=== PATIENT | female | born 1960 | race Caucasian/White ===

== ENCOUNTER → 2023-06-19 15:20 | Outpatient (BNVA) | payer OTHER, SELFPAY | PROVIDERS: PCP Physician Assistant; Visit Provider Surgery ==

== ENCOUNTER 2023-08-19 07:56 | Outpatient (AMB) | payer OTHER, SELFPAY ==
--- NOTE | 2023-08-19 10:16 | MHC.OFFVISWM ---
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 BMI 39.3 *SEE COMMENTS*: Details: Start time: 10.10am, End time: 10.56am ?I spent 41 minutes speaking with the patient on the phone plus an additional 5 minutes reviewing and updating records for a total of 46 minutes HPI Comments Details: Previous weight loss efforts: (Pre-bypass weight: 293lbs, Lowest after bypass: 232lbs) Wakes up: 4am, Sleeps: 9pm Breakfast: 4.30am (bagel or toast) Lunch: 11am (pizza) Dinner: 5pm (chicken, burger) Snacks: 8am (cake), 7pm (crackers) Exercise: none Fluids: Coffee: (3-4 cups/day with creamer), tea: none, soda: none, juice: none, ETOH: none PFSH Medical History (Updated 08/19/23 @ 10:37 by Shankar Blair MD) DJD (degenerative joint disease) Depression Hypertension Surgical History (Updated 08/19/23 @ 10:28 by Shankar Blair MD) History of tonsillectomy History of laparoscopic cholecystectomy History of gastric bypass Telehealth Telehealth Telehealth Platform: Telephone Location of provider rendering services: practice address Location of patient: address on file Patient Identification confirmed using: Name, : Yes Telehealth method: voice only Patient verbally consented to treatment: Yes Patient verbally consented to billing insurance company: Yes Patient informed of any privacy concerns related to visit: Yes Minutes spent on Phone/Video with Pt.: 46 Assessment & Plan Assessment & Plan (1) Obesity: Code(s): E66.9 - Obesity, unspecified Category: Medical Qualifiers: Obesity type: due to excess calories Obesity classification: adult class 2 (BMI 35 - 39.9) Serious obesity comorbidity presence: with serious comorbidity Body mass index: BMI 39.0-39.9 Qualified Code(s): E66.01 - Morbid (severe) obesity due to excess calories; Z68.39 - Body mass index [BMI] 39.0-39.9, adult Plan: 1.? Plan for lap sleeve gastrectomy of the gastric pouch. If diaphragmatic or ventral hernias are present at time of surgery, these will be repaired laparoscopically as well. Risks and complications include possible conversion to an open procedure, anastomotic leak, bleeding requiring transfusion, small bowel obstruction, , DVT and pulmonary embolism, cardiac, or pulmonary complications, as residential complications such as anastomotic ulcer, insufficient weight loss and vitamin deficiencies. I emphasized the importance of close follow-up, adherence to instructions and good communication. 2. Nutritional counseling. Start with 2 CELEBRATE REBUILD protein (buy at hospital[facility] gift shop) shakes (ONE scoop EACH in 8oz low fat unsweetened almond milk each) at 5am-7am and 8am-10am, 2 protein bars (CELEBRATE protein bars, buy at [facility] [employer] [facility]) at 11am-1pm, and 2pm-4pm, dinner at 5pm (6 forks of protein and 6 forks of salad/vegetables) AND one more protein bar after dinner at 7pm-9pm. So you do 2 protein shakes, 3 protein bars and one meal per day. Meal to include lean meat (beef, fish, pork, turkey, chicken), or trinidadian yogurt, or egg whites, or beans with a salad with olive oil and fruits (berries, pears, apples, kiwi). Avoid salt, breads, potatoes, rice, pasta, desserts. 3. Each shake would be drunk slowly, like coffee in a period of 2 hours. You may add your coffee into your shakes if flavors match. 4. Cut each bar in 4 pieces and eat each piece in 30min ?to make each bar last 2 hours. 5. I emphasized the importance of measuring accurately the food portion and measure it when serving the food in plate 6. The meal portions include 6 full-size forks of meat and 6 full-size forks of salad. You always eat the meat portion but you can replace up to 3 forks for salad/vegetables with rice, potatoes or pasta, or a fruit ?if you like. The less you do it the better weight loss will be. 7. One full-size fork is what it can be scooped on the fork without falling aside and not what can be bit with the fork. Use regular forks like those you find in a typical restaurant. 8.? Please send me weight measurements as soon as possible and then once a week. Always include your diet and exercise plan. Alternatively come weekly at the office for weight checks and send me the measurements. 9. Start walking outside daily, tracking calories with a goal of 300 calories per day, daily. Goal is to burn 2000 calories per week on exercise, which means either 300 calories daily, or 400 calories 5 days per week, or 500 calories 4 days per week, or 650 calories 3 days per week. 10. The best choice would be to purchase a stationary bike, elliptical or treadmill at home that can track calories. Let me know if you do so I can give you an exercise plan. 11.?Goal is to lose at least 1.5-2lbs per week 12. Goal to lose 10% of your weight before surgery, which is about 24lbs. Ultimate weight goal: 215lbs before surgery 13. Please follow the diet plan exactly without any change. If you don't like something about the plan or you feel hungry you need to communicate with me so I can help you revise the plan. You should not change the plan yourself. 14. To be scheduled for EGD due to history of gastric bypass. The possibility of biopsies was discussed. Patient needs to avoid use of NSAIDs and aspirin for 1 week prior to EGD. Risks of perforation and? bleeding was discussed with the patient. This will be an outpatient procedure with IV sedation. Orders: Orders Complete Blood Count Auto Diff Today E66.9 - Obesity, unspecified, F32.A - Depression, unspecified, I10 - Essential (primary) hypertension, M19.90 - Unspecified osteoarthritis, unspecified site, Z68.39 - Body mass index [BMI] 39.0-39.9, adult Lipid Panel Today E66.9 - Obesity, unspecified, F32.A - Depression, unspecified, I10 - Essential (primary) hypertension, M19.90 - Unspecified osteoarthritis, unspecified site, Z68.39 - Body mass index [BMI] 39.0-39.9, adult Comprehensive Met. Panel Today E66.9 - Obesity, unspecified, F32.A - Depression, unspecified, I10 - Essential (primary) hypertension, M19.90 - Unspecified osteoarthritis, unspecified site, Z68.39 - Body mass index [BMI] 39.0-39.9, adult Vitamin B12 and Folate Today E66.9 - Obesity, unspecified, F32.A - Depression, unspecified, I10 - Essential (primary) hypertension, M19.90 - Unspecified osteoarthritis, unspecified site, Z68.39 - Body mass index [BMI] 39.0-39.9, adult Zinc Today E66.9 - Obesity, unspecified, F32.A - Depression, unspecified, I10 - Essential (primary) hypertension, M19.90 - Unspecified osteoarthritis, unspecified site, Z68.39 - Body mass index [BMI] 39.0-39.9, adult Vitamin B1 Today E66.9 - Obesity, unspecified, F32.A - Depression, unspecified, I10 - Essential (primary) hypertension, M19.90 - Unspecified osteoarthritis, unspecified site, Z68.39 - Body mass index [BMI] 39.0-39.9, adult US abdomen comp w elastography Today E66.9 - Obesity, unspecified, F32.A - Depression, unspecified, I10 - Essential (primary) hypertension, M19.90 - Unspecified osteoarthritis, unspecified site, Z68.39 - Body mass index [BMI] 39.0-39.9, adult XR chest 2V Today E66.9 - Obesity, unspecified, F32.A - Depression, unspecified, I10 - Essential (primary) hypertension, M19.90 - Unspecified osteoarthritis, unspecified site, Z68.39 - Body mass index [BMI] 39.0-39.9, adult Insulin Today E66.9 - Obesity, unspecified, F32.A - Depression, unspecified, I10 - Essential (primary) hypertension, M19.90 - Unspecified osteoarthritis, unspecified site, Z68.39 - Body mass index [BMI] 39.0-39.9, adult Hemoglobin A1c Today E66.9 - Obesity, unspecified, F32.A - Depression, unspecified, I10 - Essential (primary) hypertension, M19.90 - Unspecified osteoarthritis, unspecified site, Z68.39 - Body mass index [BMI] 39.0-39.9, adult H Pylori Breath Test Today E66.9 - Obesity, unspecified, F32.A - Depression, unspecified, I10 - Essential (primary) hypertension, M19.90 - Unspecified osteoarthritis, unspecified site, Z68.39 - Body mass index [BMI] 39.0-39.9, adult IRON PROFILE Today E66.9 - Obesity, unspecified, F32.A - Depression, unspecified, I10 - Essential (primary) hypertension, M19.90 - Unspecified osteoarthritis, unspecified site, Z68.39 - Body mass index [BMI] 39.0-39.9, adult C Reactive Protein Today E66.9 - Obesity, unspecified, F32.A - Depression, unspecified, I10 - Essential (primary) hypertension, M19.90 - Unspecified osteoarthritis, unspecified site, Z68.39 - Body mass index [BMI] 39.0-39.9, adult Vitamin A Today E66.9 - Obesity, unspecified, F32.A - Depression, unspecified, I10 - Essential (primary) hypertension, M19.90 - Unspecified osteoarthritis, unspecified site, Z68.39 - Body mass index [BMI] 39.0-39.9, adult TSH reflex Free T4 Today E66.9 - Obesity, unspecified, F32.A - Depression, unspecified, I10 - Essential (primary) hypertension, M19.90 - Unspecified osteoarthritis, unspecified site, Z68.39 - Body mass index [BMI] 39.0-39.9, adult Ferritin Today E66.9 - Obesity, unspecified, F32.A - Depression, unspecified, I10 - Essential (primary) hypertension, M19.90 - Unspecified osteoarthritis, unspecified site, Z68.39 - Body mass index [BMI] 39.0-39.9, adult Vitamin D 25-OH Total Today E66.9 - Obesity, unspecified, F32.A - Depression, unspecified, I10 - Essential (primary) hypertension, M19.90 - Unspecified osteoarthritis, unspecified site, Z68.39 - Body mass index [BMI] 39.0-39.9, adult ECG 12 lead EKG Today E66.9 - Obesity, unspecified, F32.A - Depression, unspecified, I10 - Essential (primary) hypertension, M19.90 - Unspecified osteoarthritis, unspecified site, Z68.39 - Body mass index [BMI] 39.0-39.9, adult FL upper GI w air Today E66.9 - Obesity, unspecified, F32.A - Depression, unspecified, I10 - Essential (primary) hypertension, M19.90 - Unspecified osteoarthritis, unspecified site, Z68.39 - Body mass index [BMI] 39.0-39.9, adult Referrals Behavioral Health Referral E66.9 - Obesity, unspecified, F32.A - Depression, unspecified, I10 - Essential (primary) hypertension, M19.90 - Unspecified osteoarthritis, unspecified site, Z68.39 - Body mass index [BMI] 39.0-39.9, adult Nutrition/Dietitian Referral E66.9 - Obesity, unspecified, F32.A - Depression, unspecified, I10 - Essential (primary) hypertension, M19.90 - Unspecified osteoarthritis, unspecified site, Z68.39 - Body mass index [BMI] 39.0-39.9, adult
[2023-08-19 10:34] VITALS: BMI 39.2
--- OUTSIDE RECORDS SUMMARY | 2023-08-23 09:16 | XMS_ITS | Continuity of Care Document ---
Author Organization [facility] [place] Address [address] [facility] [address] [place] [address]- Care Team Providers Care Roller Repairer Name Role Phone Savana Miller Primary Care Physician [phone] Encounter 06/07/22 - 06/14/22 [facility] [address], [facility] [address] [place] [address]- Attending Physician: Savana Miller Admitting Physician: Savana Miller Referring Physician: Savana Miller Allergies, Adverse Reactions, Alerts No Known Allergies Immunizations Given and Recorded Vaccine Date Status Refusal Reason SARS-CoV-2 (COVID-19) mRNA-1273 vaccine 07/08/20 R ecorded SARS-CoV-2 (COVID-19) mRNA-1273 vaccine 06/10/20 R ecorded influenza virus vaccine, inactivated 11/28/18 Mansoor rded influenza virus vaccine, inactivated 05/14/16 Mansoor rded influenza virus vaccine, inactivated 11/08/14 Mansoor rded influenza virus vaccine, inactivated 12/08/07 Mansoor rded tetanus-diphtheria toxoids (Td) 06/05/18 Recorded tetanus-diphtheria toxoids (Td) 09/15/97 Recorded tetanus/diphtheria/pertussis, acel(Tdap) 12/08/07 Recorded hepatitis B adult vaccine 07/03/01 Recorded hepatitis B adult vaccine 01/27/01 Recorded hepatitis B adult vaccine 12/27/00 Recorded Medications Albuterol (Eqv-ProAir HFA) 90 mcg/inh inhalation aerosol 2 puffs, Inhalation, Every 6 hours, PRN Wheezing/Shortness of Breath, # 1 each, 0 Refills, Maintenance, 01/01/22 9:49:00 EDT, [facility] #[id number], Partial fill upon patient request if the prescription is for a schedule II opioid drug., 2 puffs... Start Date: 01/01/22 Status: Ordered cloNIDine 0.2 mg oral tablet 0.2 mg, 1, tablet, By Mouth, 2 times a day, # 180 tablet, Refills 2, Tot. Refills 2, Maintenance, 11/13/21 15:47:00 EDT, Route to Pharmacy Electronically, [facility] #[id number], Partial fill upon patient request if the prescription is for a sched... Start Date: 11/13/21 Status: Ordered Diazepam = 50 mg, 2 times a day, 0 Refills, Maintenance, 05/11/22 8:53:00 EST, Partial fill upon patient request if the prescription is for a schedule II opioid drug. Start Date: 05/11/22 Status: Ordered diclofenac sodium 50 mg oral delayed release tablet 1 tablet = 50 mg, By Mouth, 3 times a day, # 90 tablet, 2 Refills, Maintenance, 04/10/22 12:44:00 EST, EC Tablet, [facility] #[id number], Partial fill upon patient request if the prescription is for a schedule II opioid drug., 166.1, cm, 04/10/22... Start Date: 04/10/22 Status: Ordered lisinopril 10 mg oral tablet 10 mg, 1, tablet, By Mouth, Daily, # 90 tablet, Refills 2, Tot. Refills 2, Maintenance, 11/13/21 15:47:00 EDT, Route to Pharmacy Electronically, [facility] #[id number], Partial fill upon patient request if the prescription is for a schedule II opi... Start Date: 11/13/21 Status: Ordered sertraline 100 mg oral tablet 1.5 tablet = 150 mg, By Mouth, Daily, # 135 tablet, 2 Refills, Maintenance, 11/13/21 15:47:00 EDT, Tablet, [facility] #[id number], Partial fill upon patient request if the prescription is for a schedule II opioid drug., 166.1, cm, 11/13/21 15:09:0... Start Date: 11/13/21 Status: Ordered Vitamin B12 500 mcg/mL injectable solution 0 Refills, Maintenance, 11/13/21 15:16:00 EDT, Partial fill upon patient request if the prescription is for a schedule II opioid drug. Start Date: 11/13/21 Status: Ordered Problem List Condition Confirmation Course Effective Dates Status H ealth Status Informant Vitamin B 12 deficiency Confirmed Active Kidney cysts Confirmed Active Former smoker Confirmed Active S/P gastric bypass Confirmed Active Hyperlipidemia Confirmed Active HTN (hypertension) Confirmed Active Lung nodules Confirmed Active Chronic pain of both knees Confirmed Active Major depression, recurrent, full remission Confirmed Active Severe obesity Confirmed Active Results Radiology Reports * Exam Date Time Procedure Performing Provider Status 06/07/22 10:[address] Chest LDCT Lung Program Vokatharine, Neno idi A; Auth (Verified) Notes: (CT Chest LDCT Lung Program) Reason For Exam: LAST ELIGIBLE IF 1 or 2 SUPERVISING GHAZALA CORDERO MD*LDCT LUNG CANCER SCREENING PROGRAM, FORMER SMOKER , QUIT AT AGE 46, 45PACK YEARS;Other: RESULT: CT Chest LDCT Lung Program CT Chest LDCT Lung Program Reason: Other:; LAST ELIGIBLE IF 1 or 2 SUPERVISING GHAZALA CORDERO MD*LDCT LUNG CANCER SCREENING PROGRAM, FORMER SMOKER , QUIT AT AGE 46, 45PACK YEARS; Special Instructions: BOOK AT [address] [place] [address] BOOK AFTER 05 22 2022 CALL [phone] IN LAST 12 MONTHS NO LUNG CA OR SIGNS SYMPTOMS OF LUNG CA Visit type: Baseline TECHNIQUE: Low-dose helical CT of the chest without IV contrast (Adult Lung Cancer Screening) protocol was performed. Coronal reformats were obtained. Weight-based protocol using automatic tube modulation was used to optimize exposure parameters. CTDIvol Body: 3.22 mGy, DLP Body: 107 mGy*cm. COMPARISON: CT chest with contrast, from 10/02/2005 FINDINGS: LUNG NODULES: (Based on series 5 axial) RIGHT lung: * 5 mm perifissural nodule along the minor fissure, image 183 axial; sagittal image 24. * 4 mm subpleural nodule in the posterior aspect of the right lower lobe, image 253 (measured 3 mm in 2006) * 4 mm average subpleural nodule in the right lower lobe, image 191 marginally increased from priorstudy from 2005. LEFT lung: * Average 5 mm subpleural nodule noted in the left lower lobe, image 242, stable from 2005. * 4 mm perifissural nodule along the left major fissure, seen on axial image 82; sagittal image 64,stable from 2006. * Additional scattered 1 to 2 mm micronodules noted in the left lung. OTHER FINDINGS: Trachea and Airways: Patent without evidence of tracheal or endobronchial lesion. Lungs and Pleura: Mild linear atelectasis in the anterior aspect of the right upper lobe. Redemonstrated is a 1.8 x 1.5 x 2 cm nodular density in the suprahilar region of the right upper lobe, also seen on prior study from 2006, with associated linear opacity more proximally along the bronchovascular bundle. The density has not significantly changed compared to the prior study from 2006 however there are few air-filled cystic changes noted in the adjacent lung parenchyma. No pneumothorax or pleural effusion. Mediastinum and Lymph nodes: No enlarged lymph nodes. Esophagus is unremarkable. Aorta: Mild vascular calcification but no aneurysm. Heart: Normal cardiac size. No pericardial effusion. Mild mitral annular calcification noted. Chest wall and Soft tissues: Normal. Diaphragm and Upper Abdomen: Cholecystectomy clips partially visualized. Post gastric bypass surgery changes noted. Bones: No suspicious osseous abnormalities. Mild chronic degenerative changes of the thoracic spine. IMPRESSION: 1. Bilateral lung nodules measuring up to 5 mm, some of which were also seen on prior study from 2006. LungRad Category: 2 Benign Appearance or Behavior. Nodules with a very low likelihood of becoming a clinically active cancer due to size or lack of growth. Continue annual screening with LDCT in 12 months. 2. Persistent nodular density in the right upper lobe suprahilar region now with mild distal linearatelectasis and few adjacent air-filled cystic changes, not significantly changed in size from 2006probably representing a thrombosed vascular lesion (prior pulmonary angiogram from 2006 did not demonstrate a patent vascular lesion). Categorization based on Lung-RADS 2022 criteria. [email or web address] WSN: [id number] Ordering Physician: Savana Russo Dictated By: Daphney Elkins MD Dictated Date/Time: 06/07/22 11:58 a Reviewed By: Daphney Elkins MD Signed By: Daphney Elkins MD Signed Date/Time: 06/07/22 11:58 am Transcribed By: EDUARD Transcribed Date/Time: 06/07/22 11:34 am Social History Social History Type Response Tobacco Other: quit 15 years ago, one and a half packs. Started at age: 15 Years. Sex Note * BHSPowerscribe , CIS S: TRANSCRICHIVO Elkins MD, Daphney: VERIFY Event Display: Result: Authored Date: [id number] CT Chest LDCT Lung Program Reason: Other:; LAST ELIGIBLE IF 1 or 2 SUPERVISING GHAZALA CORDERO MD*LDCT LUNG CANCER SCREENING PROGRAM, FORMER SMOKER , QUIT AT AGE 46, 45PACK YEARS; Special Instructions: BOOK AT [address] [place] [address] BOOK AFTER 05 22 2022 CALL [phone] IN LAST 12 MONTHS NO LUNG CA OR SIGNS SYMPTOMS OF LUNG CA Visit type: Baseline TECHNIQUE: Low-dose helical CT of the chest without IV contrast (Adult Lung Cancer Screening) protocol was performed. Coronal reformats were obtained. Weight-based protocol using automatic tube modulation was used to optimize exposure parameters. CTDIvol Body: 3.22 mGy, DLP Body: 107 mGy*cm. COMPARISON: CT chest with contrast, from 10/02/2005 FINDINGS: LUNG NODULES: (Based on series 5 axial) RIGHT lung: * 5 mm perifissural nodule along the minor fissure, image 183 axial; sagittal image 24. * 4 mm subpleural nodule in the posterior aspect of the right lower lobe, image 253 (measured 3 mm in 2006) * 4 mm average subpleural nodule in the right lower lobe, image 191 marginally increased from priorstudy from 2005. LEFT lung: * Average 5 mm subpleural nodule noted in the left lower lobe, image 242, stable from 2005. * 4 mm perifissural nodule along the left major fissure, seen on axial image 82; sagittal image 64,stable from 2006. * Additional scattered 1 to 2 mm micronodules noted in the left lung. OTHER FINDINGS: Trachea and Airways: Patent without evidence of tracheal or endobronchial lesion. Lungs and Pleura: Mild linear atelectasis in the anterior aspect of the right upper lobe. Redemonstrated is a 1.8 x 1.5 x 2 cm nodular density in the suprahilar region of the right upper lobe, also seen on prior study from 2005, with associated linear opacity more proximally along the bronchovascular bundle. The density has not significantly changed compared to the prior study from 2006 however there are few air-filled cystic changes noted in the adjacent lung parenchyma. No pneumothorax or pleural effusion. Mediastinum and Lymph nodes: No enlarged lymph nodes. Esophagus is unremarkable. Aorta: Mild vascular calcification but no aneurysm. Heart: Normal cardiac size. No pericardial effusion. Mild mitral annular calcification noted. Chest wall and Soft tissues: Normal. Diaphragm and Upper Abdomen: Cholecystectomy clips partially visualized. Post gastric bypass surgery changes noted. Bones: No suspicious osseous abnormalities. Mild chronic degenerative changes of the thoracic spine. IMPRESSION: 1. Bilateral lung nodules measuring up to 5 mm, some of which were also seen on prior study from 2006. LungRad Category: 2 Benign Appearance or Behavior. Nodules with a very low likelihood of becoming a clinically active cancer due to size or lack of growth. Continue annual screening with LDCT in 12 months. 2. Persistent nodular density in the right upper lobe suprahilar region now with mild distal linearatelectasis and few adjacent air-filled cystic changes, not significantly changed in size from 2006probably representing a thrombosed vascular lesion (prior pulmonary angiogram from 2005 did not demonstrate a patent vascular lesion). Categorization based on Lung-RADS 2022 criteria. [email or web address] WSN: [id number] Ordering Physician: Savana Russo Dictated By: Daphney Elkins MD Dictated Date/Time: 06/07/22 11:58 a Reviewed By: Daphney Elkins MD Signed By: Daphney Elkins MD Signed Date/Time: 06/07/22 11:58 am Transcribed By: EDUARD Transcribed Date/Time: 06/07/22 11:34 am Patient Care team information Care Team Personnel Name: Faby Luo NP Position: Reference Physician Member Role: Primary Care Nurse Address: Address: [address] [place] [address] [address] [place] [address]- Name: Savana Miller Position: S Associate Professional Member Role: PCP Address: Address: [address] [place] [id number]- Care Team Related Persons Name: CHRISTIAN DALTON Address: home [address] [place] [address]
--- OUTSIDE RECORDS SUMMARY | 2023-08-23 09:16 | XMS_ITS | Continuity of Care Document ---
Author Organization [facility] Address [address] [place] [address] ve [address] [place] [address]- Care Team Providers Care L Tacker Name Role Phone Savana Miller Primary Care Physician [facility] Date(s): 03/16/22 - 04/15/[address] [place], [place] [address] Allergies, Adverse Reactions, Alerts No Known Allergies [...] each, 0 Refills, Maintenance, 01/01/22 9:49:00 EDT, [facility] #[id number], Partial fill upon patient request if the prescription is for a schedule II opioid drug., 2 puffs... Start Date: 01/01/22 Status: Ordered cloNIDine 0.2 mg oral tablet 0.2 mg, 1, tablet, By Mouth, 2 times a day, # 180 tablet, Refills 2, Tot. Refills 2, Maintenance, 11/13/21 15:47:00 EDT, Route to Pharmacy Electronically, [facility] #[id number], Partial fill upon patient request if the prescription is for a sched... Start Date: 11/13/21 Status: Ordered diclofenac sodium 50 mg oral delayed release tablet 1 tablet = 50 mg, By Mouth, 3 times a day, # 90 tablet, 2 Refills, Maintenance, 04/10/22 12:44:00 EST, EC Tablet, [facility] #[id number], Partial fill upon patient request if the prescription is for a schedule II opioid drug., 166.1, cm, 04/10/22... Start Date: 04/10/22 Status: Ordered lisinopril 10 mg oral tablet 10 mg, 1, tablet, By Mouth, Daily, # 90 tablet, Refills 2, Tot. Refills 2, Maintenance, 11/13/21 15:47:00 EDT, Route to Pharmacy Electronically, [facility] #[id number], Partial fill upon patient request if the prescription is for a schedule II opi... Start Date: 11/13/21 Status: Ordered sertraline 100 mg oral tablet 1.5 tablet = 150 mg, By Mouth, Daily, # 135 tablet, 2 Refills, Maintenance, 11/13/21 15:47:00 EDT, Tablet, [facility] #[id number], Partial fill upon patient request if the [...] (hypertension) Confirmed Active Lung nodules Confirmed Active Obese class II Confirmed Active Chronic pain of both knees Confirmed Active Major depression, recurrent, full remission Confirmed Active Social History Social History Type Response Tobacco Other: quit 15 years ago, one and a half packs. Started at age: 15 Years. Sex Patient Care team information Care Team Personnel Name: Faby Luo NP Position: Reference Physician Member Role: Primary Care Nurse Address: Address: [address] [place] [address] [address] [facility] [place] [address]- Name: Savana Miller Position: [facility] Associate Professional Member Role: PCP Address: Address: [address] [place] [address] [place] [address]- Care Team Related Persons Name: CHRISTIAN DALTON Address: home [address] [place] [address]
--- OUTSIDE RECORDS SUMMARY | 2023-08-23 09:16 | XMS_ITS | Continuity of Care Document ---
Author Organization [facility] Address [address] [place] [address] [address] [place] [address]- Care Team Providers Care Crm Developer Name Role Phone Savana Miller Primary Care Physician [facility] Date[facility]s): 05/11/22 - 05/18/[address] [place], [place] [address] Attending Physician: West Flanagan MD Referring Physician: Savana Miller Allergies, Adverse Reactions, [...] each, 0 Refills, Maintenance, 01/01/22 9:49:00 EDT, [facility] #[id number], Partial fill upon patient request if the prescription is for a schedule II opioid drug., 2 puffs... Start Date: 01/01/22 Status: Ordered cloNIDine 0.2 mg oral tablet 0.2 mg, 1, tablet, By Mouth, 2 times a day, # 180 tablet, Refills 2, Tot. Refills 2, Maintenance, 11/13/21 15:47:00 EDT, Route to Pharmacy Electronically, [facility] #[id number], Partial fill upon patient request if the [...] Refills, Maintenance, 04/10/22 12:44:00 EST, EC Tablet, [facility] #[id number], Partial fill upon patient request if the prescription is for a schedule II opioid drug., 166.1, cm, 04/10/22... Start Date: 04/10/22 Status: Ordered lisinopril 10 mg oral tablet 10 mg, 1, tablet, By Mouth, Daily, # 90 tablet, Refills 2, Tot. Refills 2, Maintenance, 11/13/21 15:47:00 EDT, Route to Pharmacy Electronically, [facility] #[id number], Partial fill upon patient request if the prescription is for a schedule II opi... Start Date: 11/13/21 Status: Ordered sertraline 100 mg oral tablet 1.5 tablet = 150 mg, By Mouth, Daily, # 135 tablet, 2 Refills, Maintenance, 11/13/21 15:47:00 EDT, Tablet, [facility] #[id number], Partial fill upon patient request if the [...] remission Confirmed Active Severe obesity Confirmed Active Vital Signs Most recent to oldest [Reference Range]: 1 Height 166.1 cm (05/11/22 8:49 AM) Weight 110.8 kg (05/11/22 8:49 AM) Pulse Rate [55-90 bpm] 61 bpm (05/11/22 8:49 AM) Body Mass Index [18.5-24.99 kg/m2] 40.16 kg/m2 *>HHI* (05/11/22 8:49 AM) Blood Pressure [90-138/55-84 mm Hg] 129/ 78mm Hg (05/11/22 8:49 AM) Respiratory Rate [16-30 br/min] 16 br/mi n (05/11/22 8:49 AM) Temperature [96.8-100.4 DegF] 97.1 DegF (05/11/22 8:49 AM) Blood pressure sites Arm, left (05/11/22 8:49 AM) Temperature Route Temporal (05/11/22 8:49 AM) Weight Obtained Via Standing scale (05/11/22 8:49 AM) Social History Social History Type Response Tobacco Other: quit 15 years ago, one and a half packs. Started at age: 15 Years. Sex Patient Care team information Care Team Personnel Name: Faby Luo NP Position: Reference Physician Member Role: Primary Care Nurse Address: Address: [address] [place] [address] [address] [facility] [place] [address]- [place] Name: Savana Miller Position: S Associate Professional Member Role: PCP Address: Address: [address] [place] [address] [place] [address]- Care Team Related Persons Name: CHRISTIAN DALTON Address: home [address] [place] [address]
--- OUTSIDE RECORDS SUMMARY | 2023-08-23 09:16 | XMS_ITS | Continuity of Care Document ---
Author Organization [facility] Address [address] [place] [address] [address] [place] [address]- Care Team Providers Care Auto Body Man Name Role Phone Savana Miller Primary Care Physician [phone] [facility] Date(s): 05/11/22 - 08/09/[address] [place], [place] [address] Attending Physician: West Flanagan MD Allergies, Adverse Reactions, Alerts No Known Allergies [...] each, 0 Refills, Maintenance, 01/01/22 9:49:00 EDT, [facility] #[id number], Partial fill upon patient request if the prescription is for a schedule II opioid drug., 2 puffs... Start Date: 01/01/22 Status: Ordered cloNIDine 0.2 mg oral tablet 0.2 mg, 1, tablet, By Mouth, 2 times a day, # 180 tablet, Refills 2, Tot. Refills 2, Maintenance, 11/13/21 15:47:00 EDT, Route to Pharmacy Electronically, [facility] #[id number], Partial fill upon patient request if the [...] 1 tablet = 50 mg, By Mouth, Daily, # 90 tablet, 2 Refills, Maintenance, 04/10/22 12:44:00 EST, EC Tablet, [facility] #[id number], Partial fill upon patient request if the prescription is for a schedule II opioid drug., 166.1, cm, 04/10/22 8:57:00... Start Date: 04/10/22 Status: Ordered lisinopril 10 mg oral tablet 10 mg, 1, tablet, By Mouth, Daily, # 90 tablet, Refills 2, Tot. Refills 2, Maintenance, 11/13/21 15:47:00 EDT, Route to Pharmacy Electronically, [facility] #[id number], Partial fill upon patient request if the prescription is for a schedule II opi... Start Date: 11/13/21 Status: Ordered Mounjaro 2.5 mg/0.5 mL subcutaneous solution = 2.5 mg, Subcutaneous Infusion, Every 7 days, # 2 mL, 2 Refills, Maintenance, 07/24/22 13:08:00 EDT, [facility] #[id number], Partial fill upon patient request if the prescription is for a schedule II opioid drug., 166.1, cm, 07/24/22 12:50:00 EDT... Start Date: 07/24/22 Status: Ordered sertraline 100 mg oral tablet 1.5 tablet = 150 mg, By Mouth, Daily, # 135 tablet, 0 Refills, Maintenance, 06/18/22 13:22:00 EDT, Tablet, [facility] #[id number], Partial fill upon patient request if the prescription is for a schedule II opioid drug., 166.1, cm, 06/14/22 13:03:0... Start Date: 06/18/22 Status: Ordered Vitamin B12 500 mcg/mL injectable [...] remission Confirmed Active Severe obesity Confirmed Active Social History Social History Type Response Tobacco Other: quit 15 years ago, one and a half packs. Started at age: 15 Years. Sex Patient Care team information Care Team Personnel Name: Faby Luo NP Position: Reference Physician Member Role: Primary Care Nurse Address: Address: [address] [place] [address] [address] [facility] [place] [address]- Name: Savana Miller Position: [facility] Associate Professional Member Role: PCP Address: Address: [address] [place] [address] [place] [address]- Care Team Related Persons Name: CHRISTIAN DALTON Address: home [address] [place] [address]
--- OUTSIDE RECORDS SUMMARY | 2023-08-23 09:16 | XMS_ITS | Continuity of Care Document ---
Author Organization [facility] Address [address] [place] [address]- Care Team Providers Care Kilnman Name Role Phone Savana Miller Primary Care Physician Encounter [facility] Date(s): 02/06/23 - 03/08/23 [facility] Care [address] [place] [address]- Attending Physician: AdmEfren gregorio Admitting Physician: AdmtrEfren Referring Physician: Admtr ArMohsen Allergies, Adverse Reactions, Alerts No Known Allergies [...] each, 0 Refills, Maintenance, 01/01/22 9:49:00 EDT, [facility] #[id number], Partial fill upon patient request if the prescription is for a schedule II opioid drug., 2 puffs... Start Date: 01/01/22 Status: Ordered cloNIDine 0.2 mg oral tablet 1, tablet, By Mouth, 2 times a day, # 180 tablet, Refills 1, Maintenance, 02/19/23 19:34:00 EST, Route to Pharmacy Electronically, [facility], 166.1, cm, 01/09/23 10:41:00 EDT, Height Start Date: 02/19/23 Status: Ordered cyanocobalamin 1000 mcg/ml injectable solution 1 mL = 1,000 mcg, Intramuscular, Every 30 days, # 30 mL, 0 Refills, Maintenance, 12/14/22 11:32:00 EDT, [facility], Partial fill upon patient request if the prescription is for a schedule II opioid drug. Start Date: 12/14/22 Status: Ordered Diazepam = 50 mg, 2 times a day, 0 Refills, Maintenance, 05/11/22 8:53:00 EST, Partial fill upon patient request if the prescription is for a schedule II opioid drug. Start Date: 05/11/22 Status: Ordered diclofenac sodium 50 mg oral delayed release tablet 1 tablet = 50 mg, By Mouth, 3 times a day, # 270 tablet, 2 Refills, Maintenance, 10/08/22 19:19:00 EDT, EC Tablet, [facility], Partial fill upon patient request if the prescriptionis for a schedule II opioid drug., 166.1, cm, 09/19... Start Date: 10/08/22 Stop Date: 07/05/23 Status: Ordered ferrous fumarate 324 mg oral tablet 1 tablet = 324 mg, By Mouth, Daily, # 90 tablet, 0 Refills, Maintenance, 12/14/22 11:04:00 EDT, Tablet, [facility][id number], Partial fill upon patient request if the prescription is for a schedule II opioid drug., 166.1, cm, 12/14/22 10:39:00 E... Start Date: 12/14/22 Status: Ordered lisinopril 10 mg oral tablet 1, tablet, By Mouth, Daily, # 90 tablet, Refills 1, Maintenance, 02/19/23 19:34:00 EST, Route to Pharmacy Electronically, [facility], 166.1, cm, 01/09/23 10:41:00 EDT, Height Start Date: 02/19/23 Status: Ordered omeprazole 20 mg oral enteric coated capsule 1 capsule = 20 mg, By Mouth, Daily, # 90 capsule, 0 Refills, Maintenance, 01/09/23 11:00:00 EDT, ECCapsule, [facility], Partial fill upon patient request if the prescription is for a schedule II opioid drug., 166.1, cm, 01/09/23 10... Start Date: 01/09/23 Status: Ordered sertraline 100 mg oral tablet 2 tablet = 200 mg, By Mouth, Daily, # 180 tablet, 3 Refills, Maintenance, 10/24/22 9:14:00 EDT, Tablet, [facility], Partial fill upon patient request if the prescription is for a schedule II opioid drug., 166.1, cm, 10/24/22 8:57:00... Start Date: 10/24/22 Stop Date: 10/19/23 Status: Ordered Trulicity Pen 0.75 mg/0.5 mL subcutaneous solution 0.5 mL = 0.75 mg, Subcutaneous Injection, Every week, rotate injection sites, # 2 mL, 3 Refills, Maintenance, 01/09/23 11:00:00 EDT, Solution, [facility], Partial fill upon patientrequest if the prescription is for a schedule II op... Start Date: 01/09/23 Status: Ordered Vitamin B12 500 mcg/mL injectable [...] Confirmed Active S/P gastric bypass Confirmed Active Hyperglycemia Confirmed Active Hyperlipidemia Confirmed Active HTN (hypertension) Confirmed Active NADIR (iron deficiency anemia) Confirmed Active Lung nodules Confirmed Active Chronic pain of both knees Confirmed Active Major depression, recurrent, full remission Confirmed Active Severe obesity (BMI 35.0-39.9) with comorbidity Confirmed Active Social History Social History Type Response Tobacco Other: quit 15 years ago, one and a half packs. Started at age: 15 Years. Sex Patient Care team information Care Team Personnel Name: Faby Luo NP Position: Reference Physician Member Role: Primary Care Nurse Address: Address: [address] [place] [address] [address] [facility] [place] [address]- Name: Savana Miller Position: [facility] Associate Professional Member Role: PCP Address: Address: [address] [place] [address]- Care Team Related Persons Name: CHRISTIAN DALTON Address: home [address] [place] [address]
--- OUTSIDE RECORDS SUMMARY | 2023-08-23 09:16 | XMS_ITS | Continuity of Care Document ---
Author Organization [facility] Address [address] [place] [address]- Care Team Providers Care Manager Basketball Name Role Phone Kiya Louis Primary Care Physician [facility] [facility] [place]): 04/26/[facility] - 08/[facility] Care [address] [place] [address] Discharge Disposition: A-D/C Home Attending Physician: Brianna Ramirez MD Admitting Physician: Brianna Ramirez MD Referring Physician: Savana Miller Allergies, Adverse [...] each, 0 Refills, Maintenance, 01/01/22 9:49:00 EDT, [email or web address] #[id number], Partial fill upon patient request if the prescription is for a schedule II opioid drug., 2 puffs... Start Date: 01/01/22 Status: Ordered cloNIDine 0.2 mg oral tablet 1, tablet, By Mouth, 2 times a day, # 180 tablet, Refills 1, Tot. Refills 1, Maintenance, 06/05/23 16:32:00 EDT, Route to Pharmacy Electronically, [facility], 166.1, cm, 05/27/23 14:40:00 EDT, Height, 110.4, kg, 05/27/23 14:40:00 ED... Start Date: 06/05/23 Status: Ordered cyanocobalamin 1000 mcg/ml injectable solution [...] mg, By Mouth, 3 times a day, for 90 days, with food, # 270 tablet, 0 Refills, Hard Stop 10/08/23 16:38:00 EDT, 07/10/23 16:38:00 EDT, EC Tablet, [email or web address] #[id number], Partial fillupon patient request if the prescription is for a s... Start Date: 07/10/23 Stop Date: 10/08/23 Status: Ordered diclofenac sodium 50 mg oral delayed release tablet 1 tablet = 50 mg, By Mouth, 3 times a day, PRN as needed for arthritis, with food, # 270 tablet, 0 Refills, Maintenance, 10/08/23 16:38:00 EDT, EC Tablet, [facility], Partial fill upon patient request if the prescription is for a sc... Start Date: 10/08/23 Stop Date: 01/06/24 Status: Ordered ferrous fumarate 324 mg oral tablet 1 tablet = 324 mg, By Mouth, Daily, # 90 tablet, 0 Refills, Maintenance, 04/30/23 14:01:00 EST, Tablet, [facility] #[id number], Partial fill upon patient request if the prescription is for a schedule II opioid drug., 166.1, cm, 04/29/23 9:11:00 ES... Start Date: 04/30/23 Status: Ordered lisinopril 10 mg oral tablet 1, tablet, By Mouth, Daily, # 90 tablet, Refills 1, Tot. Refills 1, Maintenance, 06/05/23 16:30:00 EDT, Route to Pharmacy Electronically, [facility], 166.1, cm, 05/27/23 14:40:00 EDT, Height, 110.4, kg, 05/27/23 14:40:00 EDT, Dry We... Start Date: 06/05/23 Status: Ordered omeprazole 20 mg oral enteric coated capsule 1 capsule = 20 mg, By Mouth, Daily, # 90 capsule, 0 Refills, Maintenance, 04/30/23 14:01:00 EST, ECCapsule, [facility] #[id number], Partial fill upon patient request if the prescription is for aschedule II opioid drug., 166.1, cm, 04/29/23 9:11:... Start Date: 04/30/23 Status: Ordered sertraline 100 mg oral tablet 2 tablet = 200 mg, By Mouth, Daily, # 180 tablet, 3 Refills, Maintenance, 04/30/23 14:01:00 EST, Tablet, [facility] #[id number], Partial fill upon patient request if the prescription is for a schedule II opioid drug., 166.1, cm, 04/29/23 9:11:00 E... Start Date: 04/30/23 Stop Date: 04/24/24 Status: Ordered Vitamin B12 500 mcg/mL injectable [...] obesity (BMI 35.0-39.9) with comorbidity Confirmed Active Vital Signs Most recent to oldest [Reference Range]: 1 2 Height 166.1 cm (06/17/23 10:42 AM) 166.1 cm (04/29/23 9:11 AM) Weight 109.5 kg (06/17/23 10:42 AM) 108.1 kg (04/29/23 9:11 AM) Oxygen Saturation [94-100 %] 98 % (06/17/23 10:42 AM) 99 % (04/29/23 9:11 AM) Pulse Rate [55-90 bpm] 71 bpm (06/17/23 10:42 AM) 98 bpm *H* (04/29/23 9:11 AM) Body Mass Index [18.5-24.99 kg/m2] 39.69 kg/m2 *>HHI* (06/17/23 10:42 AM) 39.18 kg/m2 *>HHI* (04/29/23 9:11 AM) Blood Pressure [90-138/55-84 mm Hg] 121/ 75mm Hg (06/17/23 10:42 AM) 132/82mm Hg (04/29/23 9:11 AM) Temperature [96.8-100.4 DegF] 97.4 DegF (06/17/23 10:42 AM) 97.3 DegF (04/29/23 9:11 AM) Mode of Delivery (Oxygen) Room air (06/17/23 10:42 AM) Room air (04/29/23 9:11 AM) Blood pressure sites Arm, right (06/17/23 10:42 AM) Arm, right (04/29/23 9:11 AM) Temperature Route Oral (06/17/23 10:42 AM) Oral (04/29/23 9:11 AM) Dry Weight 109.5 kg (06/17/23 10:42 AM) 108.1 kg (04/29/23 9:11 AM) Weight Obtained Via Standing scale (06/17/23 10:42 AM) Standing scale (04/29/23 9:11 AM) Dry Weight Obtained Via Standing scale (06/17/23 10:42 AM) Standing scale (04/29/23 9:11 AM) Social History Social History Type Response Tobacco Other: quit 15 years ago, one and a half packs. Started at age: 15 Years. Sex Note * Jessica Thornton: PERFORM, SIGN, VERIFY Event Display: Patient Education/Instruction Authored Date: [id number] [facility] *Heme/Onc Adult Clinical Summary Name POLINA DALTON Age 62 Years 1960 PCP Savana Miller PCP Visit Date 04/26/2023 11:09:00 Additional Instructions: Scheduled Appointments?? Future Appointments ?*[facility] [address] ?[address] ?[place],??[place],??[address] ?Phone:??--?Fax:??-- ?Appt. Date:??04/30/2023?1:40 PM ?Scheduled Provider:??Savana Miller Follow-Up Instructions ?? With: Address: When: Brianna [facility] 06/17/2023 10:45 AM Diagnosis Medications: Please continue your medications until treatment is completed or stopped by your provider. Discuss any questions related to medications with your provider. Medications to Continue with No Changes These medications were not printed or sent to your pharmacy Albuterol (Albuterol (Eqv-ProAir HFA) 90 mcg/inh inhalation aerosol) 2 puff(s) Inhalation every 6 hours as needed Wheezing/Shortness of Breath. Refills: 0. Next Dose: Clonidine (cloNIDine 0.2 mg oral tablet) 1 tab(s) Oral twice a day. Refills: 1. Next Dose: Cyanocobalamin (cyanocobalamin 1000 mcg/ml injectable solution) 1 Milliliter Intramuscular every 30days. Refills: 0. Next Dose: Cyanocobalamin (Vitamin B12 500 mcg/mL injectable solution) Next Dose: Diazepam 50 Milligram twice a day. Next Dose: Diclofenac (diclofenac sodium 50 mg oral delayed release tablet) 1 tab(s) Oral 3 times a day for 90Days. Refills: 2. Next Dose: dulaglutide (Trulicity Pen 0.75 mg/0.5 mL subcutaneous solution) 0.5 Milliliter Subcutaneous Injection every week. rotate injection sites. Refills: 3. Next Dose: Ferrous Fumarate (ferrous fumarate 324 mg oral tablet) 1 tab(s) Oral Daily. Refills: 0. Next Dose: Lisinopril (lisinopril 10 mg oral tablet) 1 tab(s) Oral Daily. Refills: 1. Next Dose: Omeprazole (omeprazole 20 mg oral enteric coated capsule) 1 capsule Oral Daily. Refills: 0. Next Dose: Sertraline (sertraline 100 mg oral tablet) 2 tab(s) Oral Daily for 90 Days. Refills: 3. Next Dose: Allergy Info:?? NKA Medications Given This Visit Future Orders ?No future orders Vital Signs Height 166.1 cm Weight 108.1 kg BMI 39.18 kg/m2 Blood Pressure 132 mm Hg/82 mm Hg Temperature 97.3 DegF Pulse Rate 98 bpm Respiratory Rate 02 Sat Mode of Delivery 99 %/Room air You can now view a summary of your hospital visit from the comfort of your home through a free online portal called [employer]. [employer] is a website that allows you to securely view your medical information including discharge summary, medications and follow-up visits. ??You can alsosend a secure electronic message to your doctor???s office to request appointments, renew medications or just ask a question. You can enroll at [email or web address] or register during your next office visit. Disclaimer:?? The information provided is of a general nature and is intended to be used in conjunction with the recommendations and advice of your health care practitioner. ??Every effort has been made to ensure that the information provided is accurate and complete at the time it is provided to you however, as your needs change, or, as new ??information becomes available, different or additional instructions may be required. If you have questions, please consult with your primary care provider or pharmacist, as appropriate. ??This information is not intended to serve as substitution for assessment and evaluation by a qualified health care provider. If you do not have a primary care provider, you may find a [facility] provider by calling [facility] [employer] Link at [phone]. [facility], in keeping with [facility] guidance, no longer requires face masks for staff, patientsor visitors in most situations. Similar to time spent indoors at other locations, there is the chance that you were exposed to respiratory viruses during your time with us (such as flu or COVID-19).? If you develop symptoms concerning for a viral respiratory infection, please seek testing (and treatment if indicated) from your medical provider or home test kit. For information about the plan of care including goals and instructions for your diagnosis, please see the patient education orders section of this document. Patient Education Materials?? The content of this educational material or handout may have been modified, supplemented, or adapted from its original content and format to support your individualized medical care. Patient Care team information Care Team Personnel Name: Kiya Louis Position: S Associate Professional Member Role: PCP Address: Address: [address] [place] [address]- Name: Puja GASTELUM , Faby Price Position: Reference Physician Member Role: Primary Care Nurse Address: Address: [address] [place] [address] [address] [employer] [place] [address]- Care Team Related Persons Name: CHRISTIAN DALTON Address: home [address] [place] [address]
--- OUTSIDE RECORDS SUMMARY | 2023-08-23 09:16 | XMS_ITS | Continuity of Care Document ---
Author Organization [facility] Adult Address [address] [place] [address]- Care Team Providers Care Manager Personal Name Role Phone Savana Miller Primary Care Physician Iris engle Encounter [facility] Date(s): 06/18/23 - 07/18/[address] [address]- Allergies, Adverse Reactions, Alerts No Known Allergies [...] each, 0 Refills, Maintenance, 01/01/22 9:49:00 EDT, [facility][id number], Partial fill upon patient request if the prescription is for a schedule II opioid drug., 2 puffs... Start Date: 01/01/22 Status: Ordered cloNIDine 0.2 mg oral tablet 1, tablet, By Mouth, 2 times a day, # 180 tablet, Refills 1, Tot. Refills 1, Maintenance, 06/05/23 16:32:00 EDT, Route to Pharmacy Electronically, [facility], 166.1, cm, 05/27/23 14:40:00 EDT, [...] mg, By Mouth, 3 times a day, with food, # 270 tablet, 0 Refills, Maintenance, 07/10/23 16:38:00 EDT, EC Tablet, [facility] #[id number], Partial fill upon patient request if the prescription is for a schedule II opioid drug., 166.1, c... Start Date: 07/10/23 Stop Date: 10/08/23 Status: Ordered ferrous fumarate 324 mg oral tablet 1 tablet = 324 mg, By Mouth, Daily, # 90 tablet, 0 Refills, Maintenance, 04/30/23 14:01:00 EST, Tablet, [facility] #[id number], Partial fill upon patient request if the [...] 0 Refills, Maintenance, 04/30/23 14:01:00 EST, ECCapsule, [facility] #[id number], Partial fill upon patient request if the prescription is for aschedule II opioid drug., 166.1, cm, 04/29/23 9:11:... Start Date: 04/30/23 Status: Ordered sertraline 100 mg oral tablet 2 tablet = 200 mg, By Mouth, Daily, # 180 tablet, 3 Refills, Maintenance, 04/30/23 14:01:00 EST, Tablet, [facility] #11304, Partial fill upon patient request if the [...] Member Role: Primary Care Nurse Address: Address: [address] [place] [address] [address] [employer] [facility] [place] [id number] Name: Karan ANNA, Savana Barrera Position: S Associate Professional Member Role: PCP Care Team Related Persons Name: SHA CHRISTIAN Address: home [address] [place] [address]
--- OUTSIDE RECORDS SUMMARY | 2023-08-23 09:16 | XMS_ITS | Continuity of Care Document ---
Author Organization [facility] Address [address] [place] [address]- Care Team Providers Care Continuing Education Instructor Name Role Phone Savana Miller Primary Care Physician [facility] Date[facility] 02[facility]23 - 04/26/23 [facility] Care [address] [place] [id number] Discharge Disposition: A-D/C Home Attending Physician: David Costello MD Admitting Physician: David Costello MD Referring Physician: Savana Miller Allergies, Adverse [...] each, 0 Refills, Maintenance, 01/01/22 9:49:00 EDT, [facility] #[id number], Partial fill upon patient request if the [...] Daily, # 90 tablet, 0 Refills, Maintenance, 03/19/23 15:26:00 EST, Tablet, [facility] #[id number], Partial fill upon patient request if the prescription is for a schedule II opioid drug., 166.1, cm, 03/19/23 13:56:00 E... Start Date: 03/19/23 Status: Ordered lisinopril 10 mg oral tablet [...] Member Role: Primary Care Nurse Address: Address: [address] [place] [address] [address] [facility] [place] [address]- Name: Savana Miller Position: S Associate Professional Member Role: PCP Address: Address: [address] [place] [address] [place] [address]- Care Team Related Persons Name: CHRISTIAN DALTON Address: home [address] [place] [address]
--- OUTSIDE RECORDS SUMMARY | 2023-08-23 09:16 | XMS_ITS | Continuity of Care Document ---
Author Organization [facility] Address [address] [facility] [place] [address]- Care Team Providers Care French Folder Name Role Phone Savana Miller Primary Care Physician Encounter 01/07/23 - 01/14/23 [facility] [address] [facility], [facility] [address] [place], [place] [address] Attending Physician: Savana Miller Admitting Physician: Savana [...] Maintenance, 01/01/22 9:49:00 EDT, [facility] #[id number], Partial fill upon patient request if the prescription is for a schedule II opioid drug., 2 puffs... Start Date: 01/01/22 Status: Ordered cloNIDine 0.2 mg oral tablet 0.2 mg, 1, tablet, By Mouth, 2 times a day, # 180 tablet, Refills 1, Tot. Refills 1, Maintenance, 08/14/22 13:21:00 EDT, Route to Pharmacy Electronically, [facility], Partial fill upon patient request if the prescription is for a sc... Start Date: 08/14/22 Status: Ordered cyanocobalamin 1000 mcg/ml injectable solution [...] 0 Refills, Maintenance, 12/14/22 11:04:00 EDT, Tablet, [facility]06049, Partial fill upon patient request if the prescription is for a schedule II opioid drug., 166.1, cm, 12/14/22 10:39:00 E... Start Date: 12/14/22 Status: Ordered lisinopril 10 mg oral tablet 10 mg, 1, tablet, By Mouth, Daily, # 90 tablet, Refills 1, Tot. Refills 1, Maintenance, 08/14/22 13:20:00 EDT, Route to Pharmacy Electronically, [facility], Partial fill upon patient request if the prescription is for a schedule II... Start Date: 08/14/22 Status: Ordered omeprazole 20 mg oral enteric [...] Exam Date Time Procedure Performing Provider Status 01/07/23 4:[address] Abd/Pelvis W/ IV + Oral Contrast Naveed Urbina; Oksana (Verified) Notes: (CT Abd/Pelvis W/ IV + Oral Contrast) Reason For Exam: Abdominal pain, acute, nonlocalized;Other: RESULT: CT Abd/Pelvis W/ IV + Oral Contrast CT Abd/Pelvis W/ IV + Oral Contrast Reason: Other:; Abdominal pain, acute, nonlocalized TECHNIQUE: Spiral CT through the abdomen and pelvis with IV contrast formatted in 3 planes. 100 cc of Omnipaque 300 was administered intravenously. This study was performed with oral contrast. Weight-based protocol using automatic tube modulation was used to optimize exposure parameters. CTDIvol Body: 22.95 mGy, DLP Body: 1149 mGy*cm. COMPARISON: None. FINDINGS: Hedis Specialist View Findings, Lines and Tubes: None. Visualized Chest: Lung bases are clear. No pleural effusion. The heart is mildly enlarged. Mitral annular calcifications No pericardial effusion. Diaphragm: Small hiatal hernia. Liver: Normal. Gallbladder: Absent consistent with prior cholecystectomy. Bile ducts: Diffuse biliary ductal dilation. This is intrahepatic and extrahepatic and can relate to reservoir effect in the setting of postcholecystectomy. Spleen: Normal. Pancreas: Normal. Adrenal glands: Normal. Kidneys and ureters: No hydronephrosis, stones, or suspicious masses. Simple appearing renal cysts and hypodensities that are too small to characterize are noted, requiring no dedicated follow up. Bladder: Normal. Reproductive organs: Unremarkable. Stomach, small bowel, and large bowel: Stomach and small bowel loops are nondistended. No bowel obstruction. Postsurgical changes of gastric bypass. Appendix: Normal. Peritoneum and retroperitoneum: No ascites or fluid collection. No omental or mesenteric lesions. Lymph nodes: No adenopathy. Blood vessels: Mild aortoiliac eccentric calcified atherosclerosis. No aneurysmal dilatation of theabdominal aorta. No evidence of venous thrombosis. Abdominal and pelvic wall: Prior mesh repair at the midline ventral abdomen without acute complication. Bones: No acute abnormality. Moderate degenerative changes at L5-S1 with disc height loss. Lucency at the upper endplate of L4 is likely due to focal osteopenia with mild diffuse osteopenia also present. Partially seen contiguous osteophytosis and mild disc degenerative changes at the lower thoracic spine. IMPRESSION: No acute findings on CT of the abdomen and pelvis. Normal CT appearance of the appendix. Postsurgical changes of gastric bypass. No bowel obstruction. WSN: [id number] Ordering Physician: Savana Russo Dictated By: Alexa Taveras MD Dictated Date/Time: 01/08/23 1:48 pm Reviewed By: Alexa Taveras MD Signed By: Alexa Taveras MD Signed Date/Time: 01/08/23 1:48 pm Transcribed By: EDUARD Transcribed Date/Time: 01/07/23 5:22 pm Social History Social History Type Response Tobacco Other: quit 15 years ago, one and a half packs. Started at age: 15 Years. Sex Patient Care team information Care Team Personnel Name: Faby Luo NP Position: Reference Physician Member Role: Primary Care Nurse Address: Address: [address] [place] [address] [address] [place] [address]- Name: Savana Miller Position: S Associate Professional Member Role: PCP Address: Address: [address] [place] [address]- Care Team Related Persons Name: CHRISTIAN DALTON Address: home [address] [place] [address]
--- OUTSIDE RECORDS SUMMARY | 2023-08-23 09:16 | XMS_ITS | Continuity of Care Document ---
Author Organization [facility] Address [address] [place] [address] [address] [place] [address]- Care Team Providers Care Funeral Home General Manager Name Role Phone Savana Miller Primary Care Physician [phone] [facility]counter [facility] Date(s): 05/11/22 - 07/20/[address] [place], [place] [address] Attending Physician: Laura MS,RD,LDN, Laura Madsen Referring Physician: Savana Miller Allergies, Adverse Reactions, [...] each, 0 Refills, Maintenance, 01/01/22 9:49:00 EDT, [facility] #[id number], Partial fill upon patient request if the prescription is for a schedule II opioid drug., 2 puffs... Start Date: 01/01/22 Status: Ordered cloNIDine 0.2 mg oral tablet 0.2 mg, 1, tablet, By Mouth, 2 times a day, # 180 tablet, Refills 2, Tot. Refills 2, Maintenance, 11/13/21 15:47:00 EDT, Route to Pharmacy Electronically, [facility] #[id number], Partial fill upon patient request if the [...] Refills, Maintenance, 04/10/22 12:44:00 EST, EC Tablet, [facility] #81501, Partial fill upon patient request if the prescription is for a schedule II opioid drug., 166.1, cm, 04/10/22... Start Date: 04/10/22 Status: Ordered lisinopril 10 mg oral tablet 10 mg, 1, tablet, By Mouth, Daily, # 90 tablet, Refills 2, Tot. Refills 2, Maintenance, 11/13/21 15:47:00 EDT, Route to Pharmacy Electronically, [facility] #14805, Partial fill upon patient request if the prescription is for a schedule II opi... Start Date: 11/13/21 Status: Ordered sertraline 100 mg oral tablet 1.5 tablet = 150 mg, By Mouth, Daily, # 135 tablet, 0 Refills, Maintenance, 06/18/22 13:22:00 EDT, Tablet, [facility] #[id number], Partial fill upon patient request if the [...] Member Role: Primary Care Nurse Address: Address: [address] [place] [address] [address] [facility] [place] [address]- Name: Savana Miller Position: S Associate Professional Member Role: PCP Address: Address: [address] [place] [address] [place] [address]- Care Team Related Persons Name: CHRISTIAN DALTON Address: home [address] [place] [address]
--- OUTSIDE RECORDS SUMMARY | 2023-08-23 09:16 | XMS_ITS | Continuity of Care Document ---
Author Organization [facility] Address [address] [place] [address]- Care Team Providers Care Supply Chain Logistics Manager Name Role Phone Savana Miller Primary Care Physician [facility] [facility] Date(s): 04/26/23 - 05/26/23 [facility] Care [address] [place] [address]- Attending Physician: AdmEfren gregorio Admitting Physician: AdmtrEfren [...] each, 0 Refills, Maintenance, 01/01/22 9:49:00 EDT, [facility] #[id number], Partial fill upon patient request if the prescription is for a schedule II opioid drug., 2 puffs... Start Date: 01/01/22 Status: Ordered cloNIDine 0.2 mg oral tablet 1, tablet, By Mouth, 2 times a day, # 180 tablet, Refills 1, Tot. Refills 1, Maintenance, 04/30/23 14:01:00 EST, Route to Pharmacy Electronically, [facility] #[id number], 166.1, cm, 04/29/23 9:11:00 EST, Height, 108.1, kg, 04/29/23 9:11:00 EST, [email or web address] Start Date: 04/30/23 Status: Ordered cyanocobalamin 1000 mcg/ml injectable solution [...] 0 Refills, Maintenance, 04/30/23 14:01:00 EST, Tablet, [facility] #17265, Partial fill upon patient request if the prescription is for a schedule II opioid drug., 166.1, cm, 04/29/23 9:11:00 ES... Start Date: 04/30/23 Status: Ordered lisinopril 10 mg oral tablet 1, tablet, By Mouth, Daily, # 90 tablet, Refills 1, Tot. Refills 1, Maintenance, 04/30/23 14:01:00 EST, Route to Pharmacy Electronically, [facility] #[id number], 166.1, cm, 04/29/23 9:11:00 EST, Height, 108.1, kg, 04/29/23 9:11:00 EST, Dry Weight Start Date: 04/30/23 Status: Ordered omeprazole 20 mg oral enteric coated capsule 1 capsule = 20 mg, By Mouth, Daily, # 90 capsule, 0 Refills, Maintenance, 04/30/23 14:01:00 EST, ECCapsule, [facility] #[id number], Partial fill upon patient request if the prescription is for aschedule II opioid drug., 166.1, cm, 04/29/23 9:11:... Start Date: 04/30/23 Status: Ordered sertraline 100 mg oral tablet 2 tablet = 200 mg, By Mouth, Daily, # 180 tablet, 3 Refills, Maintenance, 04/30/23 14:01:00 EST, Tablet, [facility] #27405, Partial fill upon patient request if the [...] Member Role: Primary Care Nurse Address: Address: [address] [facility] [address] [facility] [place] [address]- Name: Karan ANNA, Savana Barrera Position: [facility] Associate Professional Member Role: PCP Address: Address: [address] [place] [address] [place] [address]- Care Team Related Persons Name: CHRISTIAN DALTON Address: home [address] [place] [address]
--- OUTSIDE RECORDS SUMMARY | 2023-08-23 09:16 | XMS_ITS | Continuity of Care Document ---
Author Organization [facility] Address [address] [place] [address]- Care Team Providers Care Service Desk Lead Name Role Phone Savana Miller Primary Care Physician [phone] [facility] Date[facility]s): 04/29/23 - 05/29/23 [facility] Care [address] [place] [address] Allergies, Adverse Reactions, Alerts No Known Allergies [...] each, 0 Refills, Maintenance, 01/01/22 9:49:00 EDT, [id number], Partial fill upon patient request if the prescription is for a schedule II opioid drug., 2 puffs... Start Date: 01/01/22 Status: Ordered cloNIDine 0.2 mg oral tablet 1, tablet, By Mouth, 2 times a day, # 180 tablet, Refills 1, Tot. Refills 1, Maintenance, 04/30/23 14:01:00 EST, Route to Pharmacy Electronically, [facility] #[id number], 166.1, cm, 04/29/23 9:11:00 EST, Height, 108.1, kg, 04/29/23 9:11:00 EST, . Start Date: 04/30/23 Status: Ordered cyanocobalamin 1000 [...] 0 Refills, Maintenance, 04/30/23 14:01:00 EST, Tablet, [facility] #73550, Partial fill upon patient request if the prescription is for a schedule II opioid drug., 166.1, cm, 04/29/23 9:11:00 ES... Start Date: 04/30/23 Status: Ordered lisinopril 10 mg oral tablet 1, tablet, By Mouth, Daily, # 90 tablet, Refills 1, Tot. Refills 1, Maintenance, 04/30/23 14:01:00 EST, Route to Pharmacy Electronically, [facility] #[id number], 166.1, cm, 04/29/23 9:11:00 EST, Height, 108.1, kg, 04/29/23 9:11:00 EST, Dry Weight Start Date: 04/30/23 Status: Ordered omeprazole 20 mg oral enteric coated capsule 1 capsule = 20 mg, By Mouth, Daily, # 90 capsule, 0 Refills, Maintenance, 04/30/23 14:01:00 EST, ECCapsule, [facility] #59961, Partial fill upon patient request if the prescription is for aschedule II opioid drug., 166.1, cm, 04/29/23 9:11:... Start Date: 04/30/23 Status: Ordered sertraline 100 mg oral tablet 2 tablet = 200 mg, By Mouth, Daily, # 180 tablet, 3 Refills, Maintenance, 04/30/23 14:01:00 EST, Tablet, [facility] #52753, Partial fill upon patient request if the [...] Member Role: Primary Care Nurse Address: Address: [address] [place] [address] [address] [facility] [place] [address]- Name: Savana Miller Position: S Associate Professional Member Role: PCP Address: Address: [address] [place] [address] [place] [address]- Care Team Related Persons Name: CHRISTIAN DALTON Address: home [address] [place] [address]
--- OUTSIDE RECORDS SUMMARY | 2023-08-23 09:16 | XMS_ITS | Continuity of Care Document ---
Author Organization [facility] Address [address] [place] [address] [address] [place] [address]- Care Team Providers Care Carpenter And Joiner Name Role Phone Savana Miller Primary Care Physician [facility] Date[facility]s): 07/10/22 - 08/09/[address] [place], [place] [address] Attending Physician: Admtr, Luis Daniel8 Admitting Physician: AdmtrLuis Daniel8 Referring Physician: Admtr, Ar8 Allergies, Adverse Reactions, Alerts No Known Allergies [...] each, 0 Refills, Maintenance, 01/01/22 9:49:00 EDT, [facility] #61495, Partial fill upon patient request if the prescription is for a schedule II opioid drug., 2 puffs... Start Date: 01/01/22 Status: Ordered cloNIDine 0.2 mg oral tablet 0.2 mg, 1, tablet, By Mouth, 2 times a day, # 180 tablet, Refills 2, Tot. Refills 2, Maintenance, 11/13/21 15:47:00 EDT, Route to Pharmacy Electronically, [facility] #[id number], Partial fill upon patient request if the [...] Refills, Maintenance, 04/10/22 12:44:00 EST, EC Tablet, [facility] #29163, Partial fill upon patient request if the prescription is for a schedule II opioid drug., 166.1, cm, 04/10/22 8:57:00... Start Date: 04/10/22 Status: Ordered lisinopril 10 mg oral tablet 10 mg, 1, tablet, By Mouth, Daily, # 90 tablet, Refills 2, Tot. Refills 2, Maintenance, 11/13/21 15:47:00 EDT, Route to Pharmacy Electronically, [facility] #[id number], Partial fill upon patient request if the prescription is for a schedule II opi... Start Date: 11/13/21 Status: Ordered Mounjaro 2.5 mg/0.5 mL subcutaneous solution = 2.5 mg, Subcutaneous Infusion, Every 7 days, # 2 mL, 2 Refills, Maintenance, 07/24/22 13:08:00 EDT, [facility] #36508, Partial fill upon patient request if the prescription is for a schedule II opioid drug., 166.1, cm, 07/24/22 12:50:00 EDT... Start Date: 07/24/22 Status: Ordered sertraline 100 mg oral tablet 1.5 tablet = 150 mg, By Mouth, Daily, # 135 tablet, 0 Refills, Maintenance, 06/18/22 13:22:00 EDT, Tablet, [facility] #13997, Partial fill upon patient request if the [...] Member Role: Primary Care Nurse Address: Address: [address] [place] [address] [address] [facility] [place] [address]- Name: Savana Miller Position: [facility] Associate Professional Member Role: PCP Address: Address: [address] [place] [address] [place] [address]- Care Team Related Persons Name: CHRISTIAN DALTON Address: home [address] [place] [address]
--- OUTSIDE RECORDS SUMMARY | 2023-08-23 09:16 | XMS_ITS | Continuity of Care Document ---
Author Organization [facility] Address [address] [place] [address]- Care Team Providers Care Wholesaler Name Role Phone Savana Miller Primary Care Physician Iris engle En[place] [facility] Date(s): 06/17/23 - 07/17/23 [facility] [address] [place] [address] Allergies, Adverse Reactions, Alerts No Known [...] each, 0 Refills, Maintenance, 01/01/22 9:49:00 EDT, [id number], Partial fill upon patient request if the [...] Refills, Maintenance, 07/10/23 16:38:00 EDT, EC Tablet, [facility] #52850, Partial fill upon patient request if the prescription is for a schedule II opioid drug., 166.1, c... Start Date: 07/10/23 Stop Date: 10/08/23 Status: Ordered ferrous fumarate 324 mg oral tablet 1 tablet = 324 mg, By Mouth, Daily, # 90 tablet, 0 Refills, Maintenance, 04/30/23 14:01:00 EST, Tablet, [facility] #54342, Partial fill upon patient request if the [...] 0 Refills, Maintenance, 04/30/23 14:01:00 EST, ECCapsule, [facility] #18673, Partial fill upon patient request if the prescription is for aschedule II opioid drug., 166.1, cm, 04/29/23 9:11:... Start Date: 04/30/23 Status: Ordered sertraline 100 mg oral tablet 2 tablet = 200 mg, By Mouth, Daily, # 180 tablet, 3 Refills, Maintenance, 04/30/23 14:01:00 EST, Tablet, [facility] #54936, Partial fill upon patient request if the [...] Member Role: Primary Care Nurse Address: Address: [address] [place] [address] [address] GEODETIC SURVEY DIRECTOR [facility] [place], [place] [address] Name: Savana Miller Position: S Associate Professional Member Role: PCP Care Team Related Persons Name: CHRISTIAN DALTON Address: home [address] [place] [address]
--- OUTSIDE RECORDS SUMMARY | 2023-08-23 09:16 | XMS_ITS | Continuity of Care Document ---
Author Organization [facility] Address [address] [place] [address]- Care Team Providers Care Marketing Performance Analyst Name Role Phone Savana Miller Primary Care Physician [phone] Encounter [facility] Date(s): 05/22/22 - 06/21/22 [facility] [address] [place] [id number] Attending Physician: Admtr, Luis Daniel8 Admitting Physician: Admtr, Ar8 Referring Physician: Admtr, Ar8 Allergies, Adverse Reactions, [...] each, 0 Refills, Maintenance, 01/01/22 9:49:00 EDT, [facility] #[id number], Partial fill upon patient request if the prescription is for a schedule II opioid drug., 2 puffs... Start Date: 01/01/22 Status: Ordered cloNIDine 0.2 mg oral tablet 0.2 mg, 1, tablet, By Mouth, 2 times a day, # 180 tablet, Refills 2, Tot. Refills 2, Maintenance, 11/13/21 15:47:00 EDT, Route to Pharmacy Electronically, [facility] #[id number], Partial fill upon patient request if the [...] Refills, Maintenance, 04/10/22 12:44:00 EST, EC Tablet, [facility] #52250, Partial fill upon patient request if the prescription is for a schedule II opioid drug., 166.1, cm, 04/10/22... Start Date: 04/10/22 Status: Ordered lisinopril 10 mg oral tablet 10 mg, 1, tablet, By Mouth, Daily, # 90 tablet, Refills 2, Tot. Refills 2, Maintenance, 11/13/21 15:47:00 EDT, Route to Pharmacy Electronically, [facility] #27619, Partial fill upon patient request if the prescription is for a schedule II opi... Start Date: 11/13/21 Status: Ordered sertraline 100 mg oral tablet 1.5 tablet = 150 mg, By Mouth, Daily, # 135 tablet, 0 Refills, Maintenance, 06/18/22 13:22:00 EDT, Tablet, [facility] #54309, Partial fill upon patient request if the [...] Member Role: Primary Care Nurse Address: Address: [address] [place] [address] [address] [facility] [place] [address]- Name: Savana Miller Position: S Associate Professional Member Role: PCP Address: Address: [address] [place] [address] [place] [address]- Care Team Related Persons Name: CHRISTIAN DALTON Address: home [address] [place] [address]
== END 2023-08-19 10:57 | disposition home or self-care (01) ==
LOC: HO.HBS 07:56
PROVIDERS: PCP Physician Assistant; Visit Provider Surgery
DX: E66.01 Morbid (severe) obesity due to excess calories (principal); Z68.39 Body mass index [BMI] 39.0-39.9, adult
CPT/HCPCS: 99443

== ENCOUNTER → 2023-08-19 07:56 | Outpatient (BNVA) | payer OTHER, SELFPAY | PROVIDERS: PCP Physician Assistant; Visit Provider Surgery ==